=== PATIENT | male | born 1975 | race Caucasian/White ===

== ENCOUNTER 2023-11-12 07:21 | Emergency (ER) | payer BC, MEDICAID ==
[~2023-11-12] VITALS: Ht 170.2 cm; Wt 90.7 kg
[~2023-11-12 07:21] MED LIST: ACET-8905
[2023-11-12 07:58] VITALS: BP 121/82; PULSE 84; RESP 16; TEMP 98.2
[2023-11-12 08:30] VITALS: O2SAT 98
[2023-11-12] MEDS: KETOROLAC 30 MG/ML VIAL IVP ONE (09:08)
[2023-11-12] MEDS: NACL 0.9% 1,000 ML IV SCH (09:08)
[2023-11-12 09:16] LABS: BASOPHILS % (AUTO) 0.4 % (0.0-2.0); EOSINOPHILS # (AUTO) 0.2 K/uL (0-0.4); HEMATOCRIT 40.9 % (36-52); HEMOGLOBIN 14.1 g/dL (12.0-18.0); LYMPHOCYTES # (AUTO) 1.8 K/uL (2.0-11.5); LYMPHOCYTES % (AUTO) 31.9 % (20.5-51.1); MEAN CORPUSCULAR HEMOGLOBIN 31 pg (27-31); MEAN CORPUSCULAR HGB CONC 35 g/dL (33-37); MEAN CORPUSCULAR VOLUME 88.7 fL (80-94); MONOCYTES # (AUTO) 0.4 K/uL (0.8-1.0); MONOCYTES % (AUTO) 7.1 % (1.7-9.3); NEUTROPHILS # (AUTO) 3.3 K/uL (1.8-7.7); NEUTROPHILS % (AUTO) 57.6 % (42.2-75.2); PLATELET COUNT (AUTO) 295 K/uL (140-450); WHITE BLOOD COUNT (AUTO) 5.8 K/uL (4.8-10.8)
[2023-11-12 09:44] LABS: ANION GAP 13.8 (8-16); CALCIUM 9.4 mg/dL (8.5-10.1); CARBON DIOXIDE 25.3 mmol/L (21-32); CREATININE 1.1 mg/dL (0.6-1.3); POTASSIUM 4.1 mmol/L (3.5-5.1)
[2023-11-12 09:45] LABS: ALBUMIN 3.8 g/dL (3.4-5.0); BILIRUBIN,DIRECT 0.1 mg/dL (0.0-0.3); TOTAL BILIRUBIN 0.5 mg/dL (0.0-1.0)
[2023-11-12] MEDS: NACL 0.9% 1,000 ML IV ONE (09:58)
[2023-11-12 10:40] LABS: APPEARANCE,URINE CLEAR (CLEAR); BILIRUBIN,URINE NEGATIVE (NEGATIVE); BLOOD, URINE TRACE-I (NEGATIVE); COLOR,URINE YELLOW (YELLOW); LEUKOCYTE ESTERASE ,URINE NEGATIVE (NEGATIVE); NITRITE, URINE NEGATIVE (NEGATIVE); PROTEIN,URINE NEGATIVE (NEGATIVE); UGLUCOSE 3+ (NEGATIVE); UROBILINOGEN,URINE 0.2 EU/dL (0.2 - 1)
[2023-11-12 11:13] LABS: BACTERIA,URINE FEW /HPF (None Seen); RBC,URINE 0-5 /HPF (0-5); SQUAMOUS EPITHELIAL CELL,UR 0-3 (FEW) /LPF (0-3 (FEW)); WBC,URINE 0-5 /HPF (0-5)
[2023-11-12] MEDS ORDERED: TAMS0.4C96 PO (12:39)
[2023-11-12] MEDS ORDERED: IBUP-2218 PO (12:39)
[2023-11-12] MEDS ORDERED: METF-346 PO (12:39)
[2023-11-12] MEDS ORDERED: ONDA-188 SL (12:39)
[2023-11-12 13:34] VITALS: BP 121/82; PULSE 84; RESP 16; TEMP 98.2; O2SAT 98
== END 2023-11-12 13:35 | disposition home or self-care (01) ==
LOC: MED 07:21
DX: N23 Unspecified renal colic (principal); M79.605 Pain in left leg; M79.604 Pain in right leg; Z79.1 Long term (current) use of non-steroidal anti-inflammatories (NSAID); Z79.84 Long term (current) use of oral hypoglycemic drugs; Z79.899 Other long term (current) drug therapy
CPT/HCPCS: 36415; 74176; 76705; 80048; 80076; 81001; 82150; 83690; 85025; 96361; 96374; 99285; J1885; J7030; Q0092